=== PATIENT | male | born 1995 | race Two or more races ===

== ENCOUNTER 2019-12-11 02:01 | Inpatient (IN) | payer OTHER ==
[~2019-12-11] VITALS: Ht 180.3 cm; Wt 86.0 kg
[2019-12-11 04:45] LABS: Basophils # (auto) 0 10 ^3/uL (0-0.2); Basophils % (auto) 0.3 % (0.0-2.0); Eosinophils # (auto) 0 10 ^3/uL (0-0.8); Eosinophils % (auto) 0.3 % (0.0-7.0); Hematocrit 48.3 % (41.0-53.0); Hemoglobin 16.1 g/dL (13.5-17.5); Lymphocytes # (auto) 1.6 10 ^3/uL (0.4-5.4); Lymphocytes % (auto) 16.8 % (10.0-50.0); Mean Corpuscular Hemoglobin 29.5 pg (28.0-32.0); Mean Corpuscular Hgb Conc. 33.3 g/dL (32.0-36.0); Mean Corpuscular Volume 88.6 fL (80.0-100.0); Monocytes # (auto) 0.6 10 ^3/uL (0-1.3); Monocytes % (auto) 6.5 % (0.0-12.0); Neutrophils # (auto) 7.3 10 ^3/uL (1.6-8.6); Neutrophils % (auto) 76.1 % (37.0-80.0); Nucleated Red Blood Cells % 0.1 %; Platelet Count (auto) 198 10^3/uL (140-450); Red Blood Cells 5.45 10^6/uL (4.5-5.90); Red Cell Distribution Width 13.4 % (11.8-14.3); White Blood Cell 9.5 10^3/uL (4.4-10.8)
[2019-12-11 04:57] LABS: INR 1.07 (0.9-1.15); Partial Thromboplastin Time 27.9 sec (23.64-32.05)
[2019-12-11 05:03] LABS: Albumin 4.5 g/dL (3.4-5.0); BUN/Creatinine Ratio 12.8; Calcium 8.9 mg/dL (8.5-10.1); Potassium 3.5 mmol/L (3.5-5.1)
[2019-12-11 05:06] LABS: Bilirubin, Total 1.5 mg/dL (0.2-1.0); Total Protein 8.5 g/dL (6.4-8.2)
[2019-12-11 05:16] LABS: Urine Bacteria NONE SEEN /hpf (None Seen); Urine Blood Negative /uL (Negative); Urine Hyaline Cast FEW /lpf (0 - 2); Urine Mucus FEW (None Seen); Urine Specific Gravity 1.004 (1.001-1.035); Urine WBC <1 /hpf (0 - 3)
[2019-12-11] MEDS ORDERED: SODIUM CHLORIDE 0.9% 1,000 ML IVB ONE (07:44)
[2019-12-11] MEDS ORDERED: FAMOTIDINE 20 MG TAB PO ONE (07:45)
[2019-12-11] MEDS ORDERED: PROMETHAZINE HCL 25 MG/ML 1ML IV PRN (07:45)
[2019-12-11] MEDS ORDERED: ALUM & MAG HYDROX-SIMETH LIQ(MAALOX) 30 ML PO ONE (07:45)
[2019-12-11] MEDS ORDERED: DONNATAL 5ml ORAL Elix (BELLADONNA ALK-PHENOBARB) PO ONE (07:45)
[2019-12-11] MEDS ORDERED: cefTRIAXone 1GM/50ML D5W 50 ML IV ONE (12:30)
[2019-12-11] MEDS ORDERED: ONDANSETRON HCL 4 MG/2 ML VIAL IV PRN (13:00)
[2019-12-11] MEDS ORDERED: D5W/SOD CHL 0.45% 1,000 ML IV SCH (13:00)
[2019-12-11 14:20] LABS: Alcohol, Urine < 3.0 mg/dL (0-10); Amphetamine Screen, Urine NEGATIVE (NEGATIVE); Barbiturate Scree,Urine NEGATIVE (NEGATIVE); Benzodiazephine Screen, Urine NEGATIVE (NEGATIVE); Cannabinoid Screen, Urine NEGATIVE (NEGATIVE); Cocaine Screen, Urine NEGATIVE (NEGATIVE); Opiate Scree,Urine NEGATIVE (NEGATIVE); Phencyclidine Screen, Urine NEGATIVE (NEGATIVE)
[2019-12-11] MEDS: D5W/SOD CHL 0.45% 1,000 ML IV SCH ×2 (14:32→23:06)
--- NOTE | 2019-12-11 17:13 | NUR ---
Telemetry admit from ER: CARO WILLARDIS admitted to Telemetry unit after SBAR received. Patient oriented to CARISA GODDARD, RN primary RN, unit, room, bed, and unit policies regarding patient care and visiting hours. Patient now on continuous telemetry monitoring, tele box # 51 and telemetry reading on arrival to unit is SR 60 BPM. All questions and concerns addressed, patient verbalized understanding.
[2019-12-11] MEDS ORDERED: METH10TA87 PO (17:59)
[2019-12-11] MEDS ORDERED: METO-169 PO (17:59)
[2019-12-11] MEDS: PIPERACILLIN-TAZOB 3.375GM 100 ML IV SCH ×2 (18:19→23:35)
--- NOTE | 2019-12-11 18:52 | NUR ---
CLOSING NOTE: Patient resting in bed. No S/S of SOB or pain at this time. Care endorsed to NOC RN.
[2019-12-11 21:21] VITALS: BP 96/66
[2019-12-11] MEDS ORDERED: PANTOPRAZOLE 40 MG/10 ML VIAL INJ IV SCH (22:00)
[2019-12-11] MEDS ORDERED: METOPROLOL TARTRATE 50 MG TAB PO SCH (22:00)
[2019-12-11] MEDS ORDERED: methIMAzole 5 MG TAB PO SCH (22:00)
[2019-12-12 05:00] VITALS: BP 92/60
[2019-12-12 06:01] LABS: Basophils # (auto) 0 10 ^3/uL (0-0.2); Basophils % (auto) 0.9 % (0.0-2.0); Eosinophils # (auto) 0.1 10 ^3/uL (0-0.8); Eosinophils % (auto) 1.9 % (0.0-7.0); Hematocrit 44.3 % (41.0-53.0); Hemoglobin 14.8 g/dL (13.5-17.5); Lymphocytes # (auto) 1.8 10 ^3/uL (0.4-5.4); Lymphocytes % (auto) 35.3 % (10.0-50.0); Mean Corpuscular Hgb Conc. 33.4 g/dL (32.0-36.0); Mean Corpuscular Volume 89.7 fL (80.0-100.0); Monocytes # (auto) 0.5 10 ^3/uL (0-1.3); Monocytes % (auto) 9.9 % (0.0-12.0); Neutrophils # (auto) 2.7 10 ^3/uL (1.6-8.6); Nucleated Red Blood Cells % 0.1 %; Platelet Count (auto) 170 10^3/uL (140-450); Red Blood Cells 4.94 10^6/uL (4.5-5.90); Red Cell Distribution Width 13.5 % (11.8-14.3); White Blood Cell 5.2 10^3/uL (4.4-10.8)
[2019-12-12] MEDS: D5W/SOD CHL 0.45% 1,000 ML IV SCH ×2 (06:13→14:15)
[2019-12-12] MEDS: PIPERACILLIN-TAZOB 3.375GM 100 ML IV SCH ×3 (06:13→17:23)
[2019-12-12 06:29] LABS: INR 1.11 (0.9-1.15); Partial Thromboplastin Time 29.6 sec (23.64-32.05)
[2019-12-12 06:33] LABS: Albumin 3.9 g/dL (3.4-5.0); Bilirubin, Total 2.2 mg/dL (0.2-1.0); Calcium 8.6 mg/dL (8.5-10.1); Total Protein 7.3 g/dL (6.4-8.2)
--- NOTE | 2019-12-12 06:35 | NUR ---
Closing Note Patient lying in bed, awake and alert. No s/s of distress. Bed in lowest locked position, side rails up x2, call light within reach. Guards at bedside. Will endorse care to dayshift RN.
--- NOTE | 2019-12-12 07:15 | NUR ---
Opening Shift Note: Assumed care of patient, awake and alert. No S/S of distress/SOB or pain. Patient NPO pending procedure. Bed in lowest locked position, side rails up x 2, call light within reach. Patient instructed on POC and to call for assist PRN, will continue to monitor for changes Q1hr and PRN.
[2019-12-12] MEDS ORDERED: MIDAZOLAM HCL 1MG/1ML-2 ML VIAL ONE (07:43)
[2019-12-12] MEDS ORDERED: SODIUM CHLORIDE LOCK 10 ML ONE (07:43)
[2019-12-12] MEDS ORDERED: ROCURONIUM 10MG/ML 10ML VIAL IV ONE (07:43)
[2019-12-12] MEDS ORDERED: PROPOFOL 10 MG/ML 20 ML IV ONE (07:43)
[2019-12-12] MEDS ORDERED: ONDANSETRON HCL 4 MG/2 ML VIAL ONE (07:43)
[2019-12-12] MEDS ORDERED: MORPHINE SULFATE INJECTION 1 ML ONE (07:43)
[2019-12-12] MEDS ORDERED: fentaNYL CITRATE 100 MCG/2 ML VL ONE (07:43)
[2019-12-12] MEDS ORDERED: fentaNYL CITRATE 5 ML ONE (07:43)
[2019-12-12] MEDS ORDERED: KETAMINE HCL 10 ML ONE (07:47)
--- NOTE | 2019-12-12 08:05 | NUR ---
Patient taken down to OR at this time. No distress noted.
[2019-12-12] MEDS ORDERED: LIDOCAINE 1% HCL (LOCAL ANESTH.) INJ 20ML MDV ONE (08:06)
[2019-12-12] MEDS ORDERED: BUPIVACAINE HCL 50 ML ONE (08:06)
[2019-12-12 08:24] VITALS: BP 99/53
[2019-12-12] MEDS ORDERED: LEVOTHYROXINE SODIUM 100 MCG/5 ML INJ IV ONE (08:45)
[2019-12-12] MEDS ORDERED: HYDROCORTISONE SOD SUCC 100 MG/2ML INJ VIAL ONE (08:50)
[2019-12-12] MEDS ORDERED: NEOSTIGMINE 1 MG/ML INJ (10mg/10ML VIAL) ONE (09:59)
[2019-12-12] MEDS ORDERED: GLYCOPYRROLATE 0.2 MG/ML 1ML VIAL ONE (09:59)
[2019-12-12] MEDS: ENOXAPARIN SOD 40 MG/0.4 ML SYRINGE SC SCH (10:00)
[2019-12-12] MEDS ORDERED: OXYCODONE W/ ACETAMINOPHEN 5/325MG TABLET PO PRN (10:30)
[2019-12-12] MEDS ORDERED: MORPHINE SULFATE 4 MG/ML SYR/VIAL IV PRN (10:45)
[2019-12-12] MEDS ORDERED: ONDANSETRON HCL 4 MG/2 ML VIAL IV PRN (10:45)
[2019-12-12] MEDS ORDERED: KETOROLAC TROMETH 30 MG/ML 1ML VIAL IV ONE (10:45)
[2019-12-12] MEDS: HYDROmorphone HCL 2 MG/ML VL IV PRN ×4 (10:48→11:20)
--- NOTE | 2019-12-12 11:47 | NUR ---
PATIENT GONZALEZ TO UNIT FROM OR
[2019-12-12] MEDS: OXYCODONE W/ ACETAMINOPHEN 5/325MG TABLET PO PRN ×2 (12:23→17:24)
[2019-12-12 12:29] VITALS: BP 140/67
[2019-12-12] MEDS: MORPHINE SULF INJ 2 MG/ML SYRINGE 1ML IV PRN ×2 (13:39→21:44)
[2019-12-12 16:34] VITALS: BP 138/85
[2019-12-12 22:00] VITALS: BP 110/67
[2019-12-13] MEDS: HYDROmorphone HCL 2 MG/ML VL IV PRN ×3 (00:19→16:35)
[2019-12-13] MEDS: PIPERACILLIN-TAZOB 3.375GM 100 ML IV SCH ×4 (00:19→18:10)
[2019-12-13] MEDS: D5W/SOD CHL 0.45% 1,000 ML IV SCH ×4 (02:18→22:15)
[2019-12-13] MEDS: MORPHINE SULF INJ 2 MG/ML SYRINGE 1ML IV PRN (02:44)
--- NOTE | 2019-12-13 03:21 | NUR ---
CLOSING NOTE: Patient resting in bed. No distress noted. Care endorsed
--- NOTE | 2019-12-13 03:45 | NUR ---
Opening Shift Note Assumed care of patient, awake, alert, and oriented. No S/S of distress/SOB. Patient c/o pain to abdomen, sharp 03/08. will medicate per md orders. Bed in lowest/locked position, bed rails upx2, call light within reach. Guards at bedside. Instructed on POC and to call for assist PRN. Will continue to monitor for changes Q1hr and PRN.
[2019-12-13 05:00] VITALS: BP 120/80
[2019-12-13 06:27] LABS: Basophils # (auto) 0 10 ^3/uL (0-0.2); Eosinophils # (auto) 0 10 ^3/uL (0-0.8); Hematocrit 45.4 % (41.0-53.0); Hemoglobin 15.2 g/dL (13.5-17.5); Lymphocytes # (auto) 0.9 10 ^3/uL (0.4-5.4); Lymphocytes % (auto) 8.2 % (10.0-50.0); Mean Corpuscular Hemoglobin 29.8 pg (28.0-32.0); Mean Corpuscular Hgb Conc. 33.5 g/dL (32.0-36.0); Monocytes # (auto) 1.3 10 ^3/uL (0-1.3); Monocytes % (auto) 11.8 % (0.0-12.0); Neutrophils # (auto) 8.8 10 ^3/uL (1.6-8.6); Nucleated Red Blood Cells % 0.1 %; Platelet Count (auto) 196 10^3/uL (140-450); Red Cell Distribution Width 13.8 % (11.8-14.3)
[2019-12-13 06:44] LABS: Albumin 3.9 g/dL (3.4-5.0); Potassium 3.9 mmol/L (3.5-5.1)
--- NOTE | 2019-12-13 06:45 | NUR ---
PAGE PAGED DR Saul THOMAS RE: PHARMACY WANTING CLARIFICATION ON MEDICATION. AWAITING RETURN CALL
[2019-12-13 06:49] LABS: BUN/Creatinine Ratio 4.8; Bilirubin, Total 1.6 mg/dL (0.2-1.0); Total Protein 7.6 g/dL (6.4-8.2)
[2019-12-13] MEDS: OXYCODONE W/ ACETAMINOPHEN 5/325MG TABLET PO PRN ×3 (06:53→14:48)
[2019-12-13] MEDS ORDERED: LEVOTHYROXINE SODIUM 100 MCG/5 ML INJ IV SCH (07:00)
[2019-12-13 08:22] VITALS: BP 133/78
--- NOTE | 2019-12-13 09:55 | NUR ---
MD ROUNDS DR Saul THOMAS AT BEDSIDE DISCUSSING POC WITH PATIENT. NEW ORDERS RECEIVED/WILL CARRY OUT
[2019-12-13] MEDS ORDERED: LEVOTHYROXINE SODIUM 100 MCG/5 ML INJ IV ONE (10:30)
[2019-12-13] MEDS: ENOXAPARIN SOD 40 MG/0.4 ML SYRINGE SC SCH (10:52)
[2019-12-13] MEDS: PANTOPRAZOLE 40 MG TAB PO SCH (10:52)
[2019-12-13 12:50] VITALS: BP 118/82
--- NOTE | 2019-12-13 14:00 | NUR ---
INCENTIVE SPIROMETER PATIENT GIVEN INCENTIVE SPIROMETER. EDUCATED PATIENT ON USE & IMPORTANCE OF I/S. PATIENT INFORMED TO USE I/S AT LEAST 10X/HOUR. PATIENT VERBALIZED UNDERSTANDING AND RETURNED DEMO. WILL CONTINUE TO MONITOR
--- NOTE | 2019-12-13 16:38 | NUR ---
Nutrition Assessment Notes Please refer to link for full assessment notes. Est Energy needs: [address] kcals (25-30 kcal/kgBW) Est Protein needs: 67-84 gms/day (0.8-1.0 gm/kgBW) Will continue to monitor and reassess prn. Addendum: 12/13/19 at [address] Amended: Links added.
--- NOTE | 2019-12-13 16:46 | NUR ---
DRESSING DRESSING TO ABDOMEN CHANGED AFTER PATIENT STATED "HE FELT A POP AFTER COUGHING." ASSESSED SIGHT. LYUDMILA INTACT WELL APPROXIMATED.
[2019-12-13 17:14] VITALS: BP 132/73
--- NOTE | 2019-12-13 17:25 | NUR ---
ABDOMINAL BINDER ABDOMINAL BINDER PLACED PER PATIENT REQUEST
--- NOTE | 2019-12-13 19:40 | NUR ---
Opening Shift Note Assumed care of patient, awake and alert. No S/S of distress/SOB or pain. Instructed on POC and to call for assist PRN, will continue to monitor for changes Q1hr and PRN.Post open cholecystectomy M[place] dressing dry and intact.
[2019-12-13] MEDS ORDERED: KETOROLAC TROMETH 30 MG/ML 1ML VIAL IV ONE (20:00)
[2019-12-13 22:00] VITALS: BP 101/68
[2019-12-14] VITALS (7 sets, daily range): BP systolic 104–131; BP diastolic 50–87
[2019-12-14] MEDS: KETOROLAC TROMETH 30 MG/ML 1ML VIAL IV SCH ×2 (01:57→05:35)
[2019-12-14] MEDS: OXYCODONE W/ ACETAMINOPHEN 5/325MG TABLET PO PRN ×4 (03:02→20:06)
[2019-12-14] MEDS: D5W/SOD CHL 0.45% 1,000 ML IV SCH ×3 (05:34→17:55)
[2019-12-14] MEDS: LEVOTHYROXINE SODIUM 100 MCG TAB PO SCH (06:37)
--- NOTE | 2019-12-14 07:23 | NUR ---
Report given to Malick Machado, patient is resting, no distress.
--- NOTE | 2019-12-14 07:36 | NUR ---
Opening Note Assumed pt care from NOC RN. Pt is a/ox4 with no s/s of distress or SOB. Pt is currently sitting upright in bed with mild c/o pain to abdomen, 01/05. Discussed next pain medication. Discussed POC with pt; pt verbalized understanding. Incision to abdomen is open to air; no abnormalities noted. Safety measures maintained with call light within reach, bed in lowest position and side rails up. Will continue to monitor.
--- NOTE | 2019-12-14 07:40 | NUR ---
Dr Saul Biggs at bedside MD to see pt. requests that repeat TSH labs be done in the morning to monitor thyroid function. Will continue to monitor.
[2019-12-14 07:56] LABS: Albumin 3.7 g/dL (3.4-5.0); Calcium 8.9 mg/dL (8.5-10.1); Potassium 3.5 mmol/L (3.5-5.1)
[2019-12-14 08:00] LABS: BUN/Creatinine Ratio 4.3; Bilirubin, Total 1.3 mg/dL (0.2-1.0); Total Protein 7.1 g/dL (6.4-8.2)
--- NOTE | 2019-12-14 08:06 | NUR ---
Spoke with Radiology Unable to complete MRCP due to pt eating breakfast. Will keep pt NPO after 0000 for MRCP tomorrow.
[2019-12-14] MEDS: PANTOPRAZOLE 40 MG TAB PO SCH (09:09)
[2019-12-14] MEDS: ENOXAPARIN SOD 40 MG/0.4 ML SYRINGE SC SCH (09:10)
--- NOTE | 2019-12-14 09:20 | NUR ---
Pt Refusing Tele Monitor Pt currently refusing to wear tele monitor. Pt states "it irritates my incision". Discussed with pt the ability too move the wire so that it is not touching his stomach; pt still refused and requested that we would give his skin some rest. Will attempt to replace monitor.
--- NOTE | 2019-12-14 13:44 | NUR ---
IV INSERTION AND REMOVAL 20G INSERTED TO RIGHT FOREARM, ONE ATTEMPT USING CLEAN STERILE TECHNIQUE, PATIENT TOLERATED WELL. 20G TO LEFT AC REMOVED. CATHETER REMOVED FULLY INTACT, SIGHT IS ASYMPTOMATIC, PRESSURE APPLIED WITH GAUZE AND WRAPPED WITH COBAND.
--- NOTE | 2019-12-14 19:15 | NUR ---
Opening Shift Note Received report from zafar Amezquita RN. Assumed care of patient, awake and alert. Guards at bedside. No S/S of distress/SOB, but c/o pain to right abdomen. Will give pain medication as ordered. Instructed on POC and to call for assist PRN, will continue to monitor for changes Q1hr and PRN.
--- NOTE | 2019-12-14 21:30 | NUR ---
Reminded patient not to remove abd binder when ambulating. Patient verbalized understanding.
[2019-12-15] MEDS: OXYCODONE W/ ACETAMINOPHEN 5/325MG TABLET PO PRN ×4 (01:34→23:51)
--- NOTE | 2019-12-15 01:34 | NUR ---
Pain medication given Percocet for pain to abdomen of 9/10. Patient refused Morphine stating that it does not work.
[2019-12-15 05:00] VITALS: BP 144/82
[2019-12-15] MEDS: D5W/SOD CHL 0.45% 1,000 ML IV SCH ×3 (05:34→22:15)
[2019-12-15] MEDS: LEVOTHYROXINE SODIUM 100 MCG TAB PO SCH (06:53)
--- NOTE | 2019-12-15 08:00 | NUR ---
Opening Shift Note Assumed care of patient, awake and alert. No S/S of distress/SOB or pain. Instructed on POC and to call for assist PRN, will continue to monitor for changes Q1hr and PRN.
[2019-12-15 09:00] VITALS: BP 145/89
[2019-12-15] MEDS: PANTOPRAZOLE 40 MG TAB PO SCH (09:54)
[2019-12-15] MEDS: ENOXAPARIN SOD 40 MG/0.4 ML SYRINGE SC SCH (09:55)
[2019-12-15] MEDS: MORPHINE SULF INJ 2 MG/ML SYRINGE 1ML IV PRN ×3 (09:56→21:10)
[2019-12-15 13:00] VITALS: BP 144/87
--- NOTE | 2019-12-15 15:32 | NUR ---
assessment Patient is a 24 year old male who is alert and oriented. Patient has been explained that he has a social insurance adviser available to him for support and education regarding his hospital stay and any post discharge needs. Patient has no concerns and no questions at this time. Patient verbalized understanding. Addendum: 12/15/19 at 1533 by Massiel MARADIAGA Amended: Links added.
--- NOTE | 2019-12-15 15:32 | NUR ---
Nutrition Followup Note Wt 88.4kg Pt was alert and oriented when rounding this am. Pt reports appetite was good. Pt reports some nausea from certain greasier foods. Pt requested Ensure Enlive, pt intake is adequate, advised pt the need to eat food over supplements. Est Energy needs: [address] kcals (25-30 kcal/kgBW) Est Protein needs: 67-84 gms/day (0.8-1.0 gm/kgBW) Will continue to monitor and reassess prn. Labs: AST 72H, ALT 97H, Alb 3.7WNL BM: 1 12/13 per RN doc Skin: BS 21 low risk ,full details in director of career resources doc. PES: Resolved: Pt diet regular. 1) Increased nutrient needs r/t pt current medical condition aeb pt with a Clear Liquid diet 2) Altered nutrition related lab values r/t current medical condition aeb elev LFTs, hyperglycemia, elev Bili Comments Will continue to closely monitor pertinent labs, PO intake and skin status prn. Will followup in 2-3 days 1) Continue to closely monitor pt PO intake to meet at least 75% of meals 2) Continue current plan of care Expected Outcomes/Goals: Pt appetite to remain >75% PO intake
[2019-12-15 16:54] VITALS: BP 140/76
--- NOTE | 2019-12-15 20:00 | NUR ---
OPENING NOTE RECEIVED REPORT FROM DAYSHIFT RN. ASSUMING ROLE OF CARE FOR THE NIGHT AND PATIENT VERBALIZED UNDERSTANDING. PATIENT SHOWING NO SIGN OF DISTRESS, SHORTNESS OF BREATH, BUT PATIENT DOES STATE PAIN FROM INCISION. INCISION IS OPEN TO AIR WITH NO DRAINAGE NOTED. PATIENT WILL BE MEDICATED PER PAIN PROTOCOL WHEN AVAILABLE. BED LOWERED, CALL LIGHT WITHIN REACH, AND PATIENT WILL BE ROUNDED ON EVERY HOUR AND NEEDED.
[2019-12-15 22:00] VITALS: BP 156/82
[2019-12-16] MEDS: MORPHINE SULF INJ 2 MG/ML SYRINGE 1ML IV PRN ×2 (02:56→06:57)
[2019-12-16 05:00] VITALS: BP 136/83
[2019-12-16] MEDS: D5W/SOD CHL 0.45% 1,000 ML IV SCH (06:13)
[2019-12-16] MEDS: LEVOTHYROXINE SODIUM 100 MCG TAB PO SCH (06:14)
--- NOTE | 2019-12-16 07:30 | NUR ---
Opening Shift Note RECEIVED REPORT FROM NOC RN. Assumed care of patient, awake and alert. No S/S of distress/SOB or pain. BED IN LOWEST, LOCKED POSITION WITH SIDERAILS UP x2 AND CALL LIGHT WITHIN REACH AND GUARDS AT BEDSIDE. Instructed on POC and to call for assist PRN, will continue to monitor for changes Q1hr and PRN.
[2019-12-16 08:39] VITALS: BP 137/80
[2019-12-16] MEDS: OXYCODONE W/ ACETAMINOPHEN 5/325MG TABLET PO PRN ×2 (08:44→16:01)
[2019-12-16] MEDS: ENOXAPARIN SOD 40 MG/0.4 ML SYRINGE SC SCH (09:37)
[2019-12-16] MEDS: PANTOPRAZOLE 40 MG TAB PO SCH (09:37)
--- NOTE | 2019-12-16 10:45 | NUR ---
DISCHARGE SUMMARY #[id number], PER DR. Magui THOMAS.
[2019-12-16 10:55] VITALS: BP 137/80
[2019-12-16 12:40] VITALS: BP 135/85
[2019-12-16 16:32] VITALS: BP 129/71
--- NOTE | 2019-12-16 17:08 | NUR ---
Discharge instructions given as ordered. Encourage to follow up with PMD as instructed. All questions and concerns addressed. Patient verbalized understanding. Medication reconciliation form completed and copy given to patient. IV removed with catheter intact, pressure dressing applied. Telemetry unit returned to ICU WITH CASIE SANTILLAN. Patient AMBULATED to vehicle with all personal belongings, accompanied by GUARDS. No distress noted at time of departure.
== END 2019-12-16 17:05 | DRG 416 ==
LOC: EEVIPCON 02:01 → ER 02:01 → OVERFLOW 02:02 → TELE-WESTW 17:13
PROVIDERS: ADMIT Specialist; ATTEND Specialist
PROC: 0DNL0ZZ Release Transverse Colon, Open Approach (ICD-10-PCS; 2019-12-12)
PROC: 3E0T3BZ Introduction of Anesthetic Agent into Peripheral Nerves and Plexi, Percutaneous Approach (ICD-10-PCS; 2019-12-12)
PROC: 0FT40ZZ Resection of Gallbladder, Open Approach (ICD-10-PCS; principal; 2019-12-12 09:18)
DX: K80.00 Calculus of gallbladder with acute cholecystitis without obstruction (principal); E03.9 Hypothyroidism, unspecified; I10 Essential (primary) hypertension; K66.0 Peritoneal adhesions (postprocedural) (postinfection); K82.8 Other specified diseases of gallbladder; Z79.899 Other long term (current) drug therapy; Z03.818 Encounter for observation for suspected exposure to other biological agents ruled out
CPT/HCPCS: 36415; 74176; 74181; 76705; 80053; 80307; 81001; 82150; 83690; 83735; 84443; 85025; 85610; 85730; 86850; 86900; 86901; C9113; G0378; J0696; J1885; J2001; J2250; J2405; J2543; J2704; J3490

== ENCOUNTER 2020-02-19 03:05 | Inpatient (IN) | payer OTHER ==
[~2020-02-19] VITALS: Ht 180.3 cm; Wt 87.0 kg
[~2020-02-19 03:05] MED LIST: METH10TA87 PO; METO-169 PO
[2020-02-19 06:47] LABS: Urine Bacteria NONE SEEN /hpf (None Seen); Urine Blood Negative /uL (Negative); Urine Specific Gravity 1.013 (1.001-1.035); Urine WBC <1 /hpf (0 - 3)
[2020-02-19] MEDS: LEVOTHYROXINE SODIUM 50 MCG TAB PO SCH ×2 (07:00→13:03)
[2020-02-19 07:32] LABS: Basophils # (auto) 0 10 ^3/uL (0-0.2); Basophils % (auto) 0.7 % (0.0-2.0); Eosinophils # (auto) 0.1 10 ^3/uL (0-0.8); Eosinophils % (auto) 1.5 % (0.0-7.0); Hematocrit 49.8 % (41.0-53.0); Hemoglobin 16.3 g/dL (13.5-17.5); Lymphocytes # (auto) 1.9 10 ^3/uL (0.4-5.4); Lymphocytes % (auto) 29.7 % (10.0-50.0); Mean Corpuscular Hemoglobin 28.9 pg (28.0-32.0); Mean Corpuscular Hgb Conc. 32.8 g/dL (32.0-36.0); Monocytes # (auto) 0.7 10 ^3/uL (0-1.3); Monocytes % (auto) 10.8 % (0.0-12.0); Neutrophils # (auto) 3.7 10 ^3/uL (1.6-8.6); Neutrophils % (auto) 57.3 % (37.0-80.0); Nucleated Red Blood Cells % 0.1 %; Platelet Count (auto) 205 10^3/uL (140-450); Red Blood Cells 5.65 10^6/uL (4.5-5.90); Red Cell Distribution Width 13.4 % (11.8-14.3); White Blood Cell 6.4 10^3/uL (4.4-10.8)
[2020-02-19 08:01] LABS: Albumin 4.4 g/dL (3.4-5.0); BUN/Creatinine Ratio 12.6; Calcium 9.4 mg/dL (8.5-10.1); Potassium 3.9 mmol/L (3.5-5.1)
[2020-02-19 08:04] LABS: Bilirubin, Total 1.6 mg/dL (0.2-1.0); Total Protein 8.1 g/dL (6.4-8.2)
[2020-02-19] MEDS ORDERED: MORPHINE SULF INJ 2 MG/ML SYRINGE 1ML IV PRN (11:30)
[2020-02-19] MEDS ORDERED: NITROGLYCERIN 0.4 MG SL TAB SL PRN (11:30)
[2020-02-19] MEDS: D5W/SOD CHL 0.45% 1,000 ML IV SCH ×2 (11:30→18:35)
[2020-02-19] MEDS ORDERED: PHENYTOIN IV DILANTIN 1,000 MG in SODIUM CHL 0.9% 250 ML IV ONE (11:45)
[2020-02-19] MEDS ORDERED: PHENYTOIN SODIUM 100 MG CAP PO ONE (12:15)
[2020-02-19 13:00] VITALS: BP_SYST 120; BP_SYST 121; BP_DIAS 74; BP_DIAS 93
[2020-02-19] MEDS: PHENYTOIN SODIUM 100 MG CAP PO SCH (13:03)
[2020-02-19] MEDS: traMADol HCL 50 MG TAB PO PRN ×2 (13:04→20:21)
[2020-02-19 17:00] VITALS: BP_SYST 120; BP_SYST 136; BP_DIAS 80; BP_DIAS 91
[2020-02-19] MEDS: ACETAMINOPHEN 325 MG TAB PO PRN (18:42)
[2020-02-19 20:00] VITALS: BP 127/69
[2020-02-19] MEDS: METOPROLOL TARTRATE 50 MG TAB PO SCH (21:51)
[2020-02-19 22:00] VITALS: BP 127/69
[2020-02-19] MEDS ORDERED: METOPROLOL SUCCINATE XL 50 MG TAB PO SCH (22:00)
[2020-02-20] MEDS: D5W/SOD CHL 0.45% 1,000 ML IV SCH ×3 (00:50→15:07)
[2020-02-20] MEDS: traMADol HCL 50 MG TAB PO PRN ×3 (04:05→20:06)
[2020-02-20 05:25] VITALS: BP 123/70
[2020-02-20] MEDS: LEVOTHYROXINE SODIUM 50 MCG TAB PO SCH (06:31)
[2020-02-20 08:43] VITALS: BP 123/67
[2020-02-20] MEDS: METOPROLOL TARTRATE 50 MG TAB PO SCH ×2 (09:33→21:38)
[2020-02-20 12:42] VITALS: BP 115/72
[2020-02-20] MEDS: ACETAMINOPHEN 325 MG TAB PO PRN ×2 (17:24→21:37)
[2020-02-20 22:00] VITALS: BP 135/74
[2020-02-21] MEDS: traMADol HCL 50 MG TAB PO PRN ×2 (05:03→21:52)
[2020-02-21 05:37] VITALS: BP 136/76
[2020-02-21] MEDS: LEVOTHYROXINE SODIUM 50 MCG TAB PO SCH (06:43)
[2020-02-21 08:00] VITALS: BP 120/74
[2020-02-21 09:25] VITALS: BP 120/74
[2020-02-21] MEDS: PHENYTOIN SODIUM 100 MG CAP PO SCH (09:37)
[2020-02-21] MEDS: METOPROLOL TARTRATE 50 MG TAB PO SCH ×2 (09:37→21:52)
[2020-02-21 12:42] VITALS: BP 118/70
[2020-02-21] MEDS: ACETAMINOPHEN 325 MG TAB PO PRN (15:53)
[2020-02-21 16:27] VITALS: BP 113/63
[2020-02-21 21:26] VITALS: BP 127/71
[2020-02-21] MEDS: LACTULOSE 20Gm/30ML SOLN PO SCH (21:53)
[2020-02-22 05:00] VITALS: BP 128/73
[2020-02-22] MEDS: LEVOTHYROXINE SODIUM 50 MCG TAB PO SCH (07:31)
[2020-02-22 08:00] VITALS: BP 116/76
[2020-02-22 09:00] VITALS: BP 116/76
[2020-02-22] MEDS: METOPROLOL TARTRATE 50 MG TAB PO SCH (10:00)
[2020-02-22] MEDS: LACTULOSE 20Gm/30ML SOLN PO SCH (10:00)
[2020-02-22] MEDS: PHENYTOIN SODIUM 100 MG CAP PO SCH (10:17)
[2020-02-22] MEDS: traMADol HCL 50 MG TAB PO PRN (10:19)
[2020-02-22 13:00] VITALS: BP 114/72
[2020-02-22] MEDS ORDERED: LEV50T PO ×2 (13:47)
[2020-02-22] MEDS ORDERED: PHE100C PO ×2 (13:47)
[2020-02-22 15:46] VITALS: BP 116/76
[2020-02-22 17:03] VITALS: BP 125/79
== END 2020-02-22 15:45 | DRG 101 ==
LOC: EDBD 03:05 → EEVIPCON 03:05 → ER 03:05 → CENTRAL 03:06
PROVIDERS: ADMIT Internal Medicine; ATTEND Internal Medicine
DX: G40.909 Epilepsy, unspecified, not intractable, without status epilepticus (principal); W06.XXXA Fall from bed, initial encounter; E03.9 Hypothyroidism, unspecified; I10 Essential (primary) hypertension; Y93.89 Activity, other specified; Y92.143 Cell of prison as the place of occurrence of the external cause; Y99.8 Other external cause status; Z90.49 Acquired absence of other specified parts of digestive tract; Z88.8 Allergy status to other drugs, medicaments and biological substances; Z79.899 Other long term (current) drug therapy
CPT/HCPCS: 36415; 70450; 70551; 72125; 80053; 80185; 81001; 84443; 85025; G0378

== ENCOUNTER → 2020-02-25 | Emergency (ER) | payer OTHER ==
[~2020-02-25] VITALS: Ht 170.2 cm; Wt 85.7 kg
[~2020-02-25] MED LIST changes: +LEV50T PO; +LORazepam 0.5 MG TAB PO ONE; +PHE100C PO
[2020-02-25 15:56] VITALS: BP 126/90
[2020-02-25 17:04] LABS: Basophils # (auto) 0 10 ^3/uL (0-0.2); Basophils % (auto) 0.8 % (0.0-2.0); Eosinophils # (auto) 0.1 10 ^3/uL (0-0.8); Eosinophils % (auto) 1.6 % (0.0-7.0); Hematocrit 47.7 % (41.0-53.0); Hemoglobin 16.1 g/dL (13.5-17.5); Lymphocytes # (auto) 1.5 10 ^3/uL (0.4-5.4); Lymphocytes % (auto) 28.7 % (10.0-50.0); Mean Corpuscular Hemoglobin 29.7 pg (28.0-32.0); Mean Corpuscular Hgb Conc. 33.9 g/dL (32.0-36.0); Mean Corpuscular Volume 87.8 fL (80.0-100.0); Monocytes # (auto) 0.5 10 ^3/uL (0-1.3); Monocytes % (auto) 10.2 % (0.0-12.0); Neutrophils % (auto) 58.7 % (37.0-80.0); Nucleated Red Blood Cells % 0.2 %; Platelet Count (auto) 196 10^3/uL (140-450); Red Blood Cells 5.43 10^6/uL (4.5-5.90); White Blood Cell 5.1 10^3/uL (4.4-10.8)
[2020-02-25 17:14] LABS: Albumin 4.4 g/dL (3.4-5.0); Potassium 4.3 mmol/L (3.5-5.1)
[2020-02-25 17:17] LABS: Bilirubin, Total 0.9 mg/dL (0.2-1.0); Total Protein 8.2 g/dL (6.4-8.2)
== END | disposition home or self-care (01) ==
LOC: ER 15:50
DX: R56.9 Unspecified convulsions (principal)
CPT/HCPCS: 36415; 70450; 80053; 85025

== ENCOUNTER 2020-03-08 19:14 | Inpatient (IN) | payer OTHER ==
[~2020-03-08] VITALS: Ht 182.9 cm; Wt 87.4 kg
[~2020-03-08 19:14] MED LIST changes: -LORazepam 0.5 MG TAB PO ONE
[2020-03-08] MEDS ORDERED: SODIUM CHLORIDE 0.9% 1,000 ML IVB ONE (19:58)
[2020-03-08] MEDS ORDERED: LORazepam 2MG/ML-1ML VIAL IV ONE (20:00)
[2020-03-08 20:34] LABS: Amphetamine Screen, Urine NEGATIVE (NEGATIVE); Barbiturate Scree,Urine NEGATIVE (NEGATIVE); Benzodiazephine Screen, Urine NEGATIVE (NEGATIVE); Cannabinoid Screen, Urine NEGATIVE (NEGATIVE); Cocaine Screen, Urine NEGATIVE (NEGATIVE); Opiate Scree,Urine NEGATIVE (NEGATIVE); Phencyclidine Screen, Urine NEGATIVE (NEGATIVE)
[2020-03-08 20:50] LABS: Basophils # (auto) 0 10 ^3/uL (0-0.2); Basophils % (auto) 0.2 % (0.0-2.0); Eosinophils # (auto) 0 10 ^3/uL (0-0.8); Eosinophils % (auto) 0.2 % (0.0-7.0); Hematocrit 46.7 % (41.0-53.0); Hemoglobin 15.5 g/dL (13.5-17.5); Lymphocytes # (auto) 1.1 10 ^3/uL (0.4-5.4); Lymphocytes % (auto) 10.7 % (10.0-50.0); Mean Corpuscular Hemoglobin 29.1 pg (28.0-32.0); Mean Corpuscular Hgb Conc. 33.2 g/dL (32.0-36.0); Mean Corpuscular Volume 87.8 fL (80.0-100.0); Monocytes # (auto) 0.8 10 ^3/uL (0-1.3); Monocytes % (auto) 7.7 % (0.0-12.0); Neutrophils % (auto) 81.2 % (37.0-80.0); Platelet Count (auto) 194 10^3/uL (140-450); Red Blood Cells 5.32 10^6/uL (4.5-5.90); White Blood Cell 9.9 10^3/uL (4.4-10.8)
[2020-03-08 20:58] LABS: Albumin 4.5 g/dL (3.4-5.0); Potassium 3.4 mmol/L (3.5-5.1)
[2020-03-08 21:01] LABS: BUN/Creatinine Ratio 18.2; Bilirubin, Total 0.5 mg/dL (0.2-1.0); Total Protein 8.1 g/dL (6.4-8.2)
[2020-03-08] MEDS ORDERED: MORPHINE SULF INJ 2 MG/ML SYRINGE 1ML IV PRN (21:30)
[2020-03-08] MEDS ORDERED: NITROGLYCERIN 0.4 MG SL TAB SL PRN (21:30)
[2020-03-08] MEDS: D5W/SOD CHL 0.45% 1,000 ML IV SCH (21:40)
[2020-03-08] MEDS: levETIRAcetam 500 MG TAB PO SCH (22:35)
[2020-03-08] MEDS: METOPROLOL TARTRATE 50 MG TAB PO SCH (22:36)
[2020-03-08 23:30] VITALS: BP 133/93
[2020-03-09] MEDS ORDERED: LEVO50TA7 PO (00:50)
[2020-03-09] MEDS ORDERED: KEP500T PO (00:50)
[2020-03-09] MEDS: D5W/SOD CHL 0.45% 1,000 ML IV SCH ×2 (04:10→09:23)
[2020-03-09 06:17] VITALS: BP 107/78
[2020-03-09] MEDS: LEVOTHYROXINE SODIUM 50 MCG TAB PO SCH (06:30)
[2020-03-09 09:00] VITALS: BP 121/78
[2020-03-09] MEDS: METOPROLOL TARTRATE 50 MG TAB PO SCH ×2 (09:22→21:58)
[2020-03-09] MEDS: levETIRAcetam 500 MG TAB PO SCH (09:22)
[2020-03-09] MEDS: traMADol HCL 50 MG TAB PO PRN ×3 (10:03→21:59)
[2020-03-09 13:00] VITALS: BP 117/72
[2020-03-09 16:43] VITALS: BP 140/86
[2020-03-09 22:00] VITALS: BP 136/74
[2020-03-10] MEDS ORDERED: LORazepam 0.5 MG TAB PO PRN (02:15)
[2020-03-10] MEDS ORDERED: LORazepam 2MG/ML-1ML VIAL IV PRN (02:30)
[2020-03-10] MEDS: traMADol HCL 50 MG TAB PO PRN ×3 (04:50→20:22)
[2020-03-10 05:00] VITALS: BP 119/72
[2020-03-10 05:52] LABS: Carbamazepine (Tegretol) 9.2 ug/mL (4-12)
[2020-03-10 06:06] LABS: Phenytoin (Dilantin) < 0.5 ug/mL (10-20)
[2020-03-10] MEDS: LEVOTHYROXINE SODIUM 50 MCG TAB PO SCH (06:09)
[2020-03-10 08:22] VITALS: BP 125/90
[2020-03-10] MEDS: ENOXAPARIN SOD 40 MG/0.4 ML SYRINGE SC SCH (08:47)
[2020-03-10] MEDS: METOPROLOL TARTRATE 50 MG TAB PO SCH ×2 (08:48→22:00)
[2020-03-10 12:43] VITALS: BP 125/65
[2020-03-10 16:10] VITALS: BP 130/74
[2020-03-10] MEDS: carBAMazepine 200 MG TAB PO SCH (21:55)
[2020-03-10 22:00] VITALS: BP 123/77
[2020-03-11] MEDS: traMADol HCL 50 MG TAB PO PRN ×3 (04:22→20:21)
[2020-03-11 05:00] VITALS: BP 119/75
[2020-03-11] MEDS: carBAMazepine 200 MG TAB PO SCH ×3 (06:00→22:00)
[2020-03-11] MEDS: LEVOTHYROXINE SODIUM 50 MCG TAB PO SCH (06:30)
[2020-03-11 07:55] VITALS: BP 119/84
[2020-03-11] MEDS: ENOXAPARIN SOD 40 MG/0.4 ML SYRINGE SC SCH (09:51)
[2020-03-11] MEDS: METOPROLOL TARTRATE 50 MG TAB PO SCH ×2 (09:51→22:00)
[2020-03-11 12:00] VITALS: BP 113/68
[2020-03-11 16:53] VITALS: BP 113/75
[2020-03-11 22:16] VITALS: BP 113/70
[2020-03-12 05:06] VITALS: BP 116/69
[2020-03-12] MEDS: carBAMazepine 200 MG TAB PO SCH ×2 (06:00→13:42)
[2020-03-12] MEDS: LEVOTHYROXINE SODIUM 50 MCG TAB PO SCH (06:53)
[2020-03-12] MEDS: traMADol HCL 50 MG TAB PO PRN (06:54)
[2020-03-12 07:51] VITALS: BP 116/72
[2020-03-12 09:00] VITALS: BP 116/72
[2020-03-12] MEDS: ENOXAPARIN SOD 40 MG/0.4 ML SYRINGE SC SCH (09:40)
[2020-03-12] MEDS: METOPROLOL TARTRATE 50 MG TAB PO SCH (09:41)
[2020-03-12 13:00] VITALS: BP 139/77
[2020-03-12] MEDS ORDERED: CAR200T PO (15:38)
[2020-03-12 16:43] VITALS: BP 139/77
== END 2020-03-12 17:20 | DRG 100 ==
LOC: EDBD 19:14 → ER 19:14 → EEVIPCON 19:14 → TELE 19:15 → TELE-EAST 23:20 → TELE-WESTW 03-09 12:55
PROVIDERS: ADMIT Internal Medicine; ATTEND Internal Medicine
DX: G40.909 Epilepsy, unspecified, not intractable, without status epilepticus (principal); G92 Toxic encephalopathy; S00.83XA Contusion of other part of head, initial encounter; T42.1X5A Adverse effect of iminostilbenes, initial encounter; F12.90 Cannabis use, unspecified, uncomplicated; Z20.828 Contact with and (suspected) exposure to other viral communicable diseases; Y92.89 Other specified places as the place of occurrence of the external cause; Z88.8 Allergy status to other drugs, medicaments and biological substances; X58.XXXA Exposure to other specified factors, initial encounter; Y93.89 Activity, other specified; Y99.8 Other external cause status
CPT/HCPCS: 36415; 70450; 70551; 80053; 80156; 80185; 80307; 84443; 85025; 87081; 87426; 96361; 96374; 96375; G0378

== ENCOUNTER 2020-04-03 03:35 | Inpatient (IN) | payer OTHER ==
[~2020-04-03] VITALS: Ht 182.9 cm; Wt 104.1 kg
[~2020-04-03 03:35] MED LIST changes: +CAR200T PO; +KEP500T PO; +LEVO50TA7 PO
[2020-04-03] MEDS ORDERED: LORazepam 2MG/ML-1ML VIAL ONE (03:56)
[2020-04-03] MEDS ORDERED: LORazepam 2MG/ML-1ML VIAL IV ONE (04:15)
[2020-04-03 04:21] LABS: Basophils # (auto) 0 10 ^3/uL (0-0.2); Basophils % (auto) 0.5 % (0.0-2.0); Eosinophils # (auto) 0 10 ^3/uL (0-0.8); Eosinophils % (auto) 0.9 % (0.0-7.0); Hematocrit 46.2 % (41.0-53.0); Hemoglobin 15.7 g/dL (13.5-17.5); Lymphocytes # (auto) 1.7 10 ^3/uL (0.4-5.4); Lymphocytes % (auto) 32.9 % (10.0-50.0); Mean Corpuscular Hemoglobin 29.4 pg (28.0-32.0); Mean Corpuscular Hgb Conc. 33.9 g/dL (32.0-36.0); Mean Corpuscular Volume 86.8 fL (80.0-100.0); Monocytes # (auto) 0.6 10 ^3/uL (0-1.3); Monocytes % (auto) 10.8 % (0.0-12.0); Neutrophils # (auto) 2.9 10 ^3/uL (1.6-8.6); Neutrophils % (auto) 54.9 % (37.0-80.0); Nucleated Red Blood Cells % 0.1 %; Platelet Count (auto) 191 10^3/uL (140-450); Red Blood Cells 5.32 10^6/uL (4.5-5.90); Red Cell Distribution Width 13.6 % (11.8-14.3); White Blood Cell 5.2 10^3/uL (4.4-10.8)
[2020-04-03 04:39] LABS: Albumin 4.4 g/dL (3.4-5.0); Calcium 8.4 mg/dL (8.5-10.1); Potassium 3.6 mmol/L (3.5-5.1)
[2020-04-03 04:42] LABS: BUN/Creatinine Ratio 16.5; Bilirubin, Total 0.2 mg/dL (0.2-1.0); Total Protein 7.8 g/dL (6.4-8.2)
[2020-04-03 04:47] LABS: INR 1.08 (0.9-1.15); Partial Thromboplastin Time 26.7 sec (23.0-31.2)
[2020-04-03] MEDS ORDERED: PHENYTOIN IV DILANTIN 1,000 MG in SODIUM CHL 0.9% 250 ML IV ONE (09:45)
[2020-04-03] MEDS ORDERED: ACETAMINOPHEN 325 MG TAB PO PRN ×2 (09:45→10:45)
[2020-04-03] MEDS ORDERED: MORPHINE SULF INJ 2 MG/ML SYRINGE 1ML IV PRN (09:45)
[2020-04-03] MEDS ORDERED: NITROGLYCERIN 0.4 MG SL TAB SL PRN (09:45)
[2020-04-03] MEDS ORDERED: PHENYTOIN SODIUM 100 MG CAP PO ONE (09:45)
[2020-04-03] MEDS ORDERED: ENOXAPARIN SOD 40 MG/0.4 ML SYRINGE SC ONE (09:45)
[2020-04-03] MEDS: D5W/SOD CHL 0.45% 1,000 ML IV SCH ×3 (11:58→23:18)
--- NOTE | 2020-04-03 13:00 | NUR ---
Came on gurney from ER, received patient alert and oriented x1, none verbal, on seizure precaution, not in distress, clear sounds in bilateral lung lobes, RR=16 Sat=97%, deep breathing and coughing was encouraged, unable to verbalized understanding, no sign and symptom of chest pain and SOB, Heart rate=69, abdomen soft and active in all four quadrants, last BM=unknown, Rt. upper extremity shaking noted, general skin intact and warm to touch, resting on bed, head of bed elevated, bed on low position, rails up x2, call light on reach, VS t=97.8 RR=16 Sat=97% P=69 RB=540/63, none verbal ans unable to answer initial admission questions, guards in the room will continue monitoring.
--- NOTE | 2020-04-03 15:00 | NUR ---
NO SEIZURE ACTIVITY NOTED, KEEP NPO, REORIENT Q2 HOURS , NO NE VERBAL, NO CHANGE NOTED, WILL CONTINUE MONITORING.
[2020-04-03 17:02] VITALS: BP 119/57
--- NOTE | 2020-04-03 18:29 | NUR ---
NO SEIZURE ACTIVITY NOTED, NOT IN DISTRESS, RESTING ON BED, WILL CONTINUE MONITORING.
--- NOTE | 2020-04-03 19:30 | NUR ---
[facility] AND IN HOUSE COVID 19 SAMPLE WAS HANDED TO THE LAB.
--- NOTE | 2020-04-03 19:56 | NUR ---
REPORT WAS GIVEN TO THE DIRECTOR OF OUTSIDE SALES RN.
--- NOTE | 2020-04-03 20:02 | NUR ---
OPEN NOTE assumed care of pt upon entering room, guards at bedside. pt awake and alert, pt on room air no distress observed or verbalized. pt unable to respond verbally, but does follow commands such as moving extremities and perrla intact. pt bed rails are padded. ivf running per md orders. pt updated on plan of care, this nurse to reinforce as needed. pt bed locked, low and 2x rails up. call light in reach, this nurse to round q1hr and prn.
--- NOTE | 2020-04-03 20:23 | NUR ---
paged MD Patel for question regarding ordered PO dilantin, pt unable to swallow. message left with answering service, will await call back.
--- NOTE | 2020-04-03 20:30 | NUR ---
dr tadeo call back, this nurse asked about PO med dilantin and pt unable to swallow, stated "just give it IV". this nurse asked for dose and frequency, md replied "dont you have a computer in front of you?" and phone call disconnected.
[2020-04-03 22:00] VITALS: BP 124/53
[2020-04-03] MEDS ORDERED: PHENYTOIN IV DILANTIN 300 MG in SODIUM CHL 0.9% 50 ML IV SCH (22:00)
[2020-04-03] MEDS ORDERED: PHENYTOIN SODIUM 100 MG CAP PO SCH (22:00)
--- NOTE | 2020-04-04 00:19 | NUR ---
pt alert, able to speak in complete sentences. pt reports having issues with seizures "for years", "since i been incarcerated, they give me random meds and they dont work". reports tegretol as present med. states previously successful med klonipin, he used to acquire from "[facility]". pt reports "i feel pretty good right now, just tired". pt call light in reach, bed locked, low and 2x rails up. will continue to monitor.
[2020-04-04 05:30] VITALS: BP 113/75
[2020-04-04] MEDS: D5W/SOD CHL 0.45% 1,000 ML IV SCH ×3 (06:35→19:05)
--- NOTE | 2020-04-04 06:40 | NUR ---
called dr tadeo to notify of critical dilantin level of 23.4
--- NOTE | 2020-04-04 08:00 | NUR ---
Received patient alert and oriented x4, able to communicate today, on seizure precaution, not in distress, clear sounds in bilateral upper and lower lung lobes, RR=18 Sat=97%, deep breathing and coughing was encouraged, demonstrated and verbalized understanding, denied chest pain and SOB, Heart rate=78, abdomen soft and active in all four quadrants, keep NPO as ordered,skin intact and warm to touch, resting on bed, head of bed elevated, manpreet on low position, rails up x2, call light on reach, no seizure activity noted, guards in the room, will continue monitoring.
[2020-04-04] MEDS ORDERED: PHENYTOIN SODIUM 100 MG CAP PO SCH (10:00)
[2020-04-04 13:00] VITALS: BP 105/68
[2020-04-04 17:00] VITALS: BP 118/63
--- NOTE | 2020-04-04 19:05 | NUR ---
AT 1904 SEIZURE ACTIVITY TONIC CLONIC TYPE FOR FEW SECONDS REPORTED BY THE GUARDS, ON ASSESSMENT NO SEIZURE ACTIVITY NOTED, PATIENT ALERT AND ORIENTED, NOT IN DISTRESS, RR=18 SAT=97%, P=82 ZO=133/74, DENIED PAIN, PULED OUT RT.AC IV SITE, DR. SAAVEDRA WAS CALLED AND LEFT A MASSAGE, WAITING FOR CALL BACK.
--- NOTE | 2020-04-04 20:02 | NUR ---
REPORT WAS GIVEN TO THE PLUNGER SHOVEL OPERATOR RN.
--- NOTE | 2020-04-04 20:10 | NUR ---
Opening Shift Note Assumed care of patient, awake and alert. No S/S of distress/SOB or pain. Residential guards at bedside. Instructed on POC and to call for assist PRN, patient verbalized understanding. Bed in lowest position, call light within reach, will continue to monitor for changes Q1hr and PRN.
--- NOTE | 2020-04-04 21:12 | NUR ---
Spoke to pharmacist Yajaira regarding due dose of Phenytoin IV since Phenytoin lab is critically high. Per pharmacist, to hold tonight's dose of Phenytoin and will recheck level tomorrow.
--- NOTE | 2020-04-04 21:17 | NUR ---
Paged Dr. Patel for updates on patient's status, awaiting call back
--- NOTE | 2020-04-04 22:30 | NUR ---
IV insertion IV access obtained, via clean sterile technique by inserting 22 gauge catheter at after 1 attempt(s). IV secured properly. No trauma to site. Patient tolerated well. NOTE: []
[2020-04-04 23:55] VITALS: BP 128/70
[2020-04-04 23:59] VITALS: BP 120/75
[2020-04-04 23:59] LABS: Alcohol, Urine < 3.0 mg/dL (0-10); Amphetamine Screen, Urine NEGATIVE (NEGATIVE); Barbiturate Scree,Urine NEGATIVE (NEGATIVE); Benzodiazephine Screen, Urine NEGATIVE (NEGATIVE); Cannabinoid Screen, Urine NEGATIVE (NEGATIVE); Cocaine Screen, Urine NEGATIVE (NEGATIVE); Opiate Scree,Urine NEGATIVE (NEGATIVE); Phencyclidine Screen, Urine NEGATIVE (NEGATIVE)
[2020-04-05 00:20] LABS: Urine Bacteria NONE SEEN /hpf (None Seen); Urine Blood Negative /uL (Negative); Urine Mucus FEW (None Seen); Urine WBC <1 /hpf (0 - 3)
[2020-04-05] MEDS: D5W/SOD CHL 0.45% 1,000 ML IV SCH ×2 (04:28→11:17)
[2020-04-05 06:00] VITALS: BP 126/69
[2020-04-05] MEDS ORDERED: PHENYTOIN SODIUM 100 MG CAP PO ONE (09:00)
[2020-04-05] MEDS ORDERED: HYDROcodone-ACET 10/325MG TAB PO ONE (11:00)
--- NOTE | 2020-04-05 15:59 | NUR ---
Discharge instructions given as ordered. Encourage to follow up with kinsey FREY as instructed. All questions and concerns addressed. Patient verbalized understanding. Medication reconciliation form completed and copy given to patient. IV removed with catheter intact, pressure dressing applied, Patient taken to vehicle via wheelchair with all personal belongings, accompanied by staff and guards. No distress noted at time of departure.
== END 2020-04-05 16:00 | DRG 101 ==
LOC: EDBD 03:35 → ER 03:39 → EEVIPCON 03:39 → OVERFLOW 03:40 → WEST WING 13:03
PROVIDERS: ADMIT Internal Medicine; ATTEND Internal Medicine
DX: G40.909 Epilepsy, unspecified, not intractable, without status epilepticus (principal); K59.00 Constipation, unspecified; R04.0 Epistaxis; Z20.828 Contact with and (suspected) exposure to other viral communicable diseases; Z90.49 Acquired absence of other specified parts of digestive tract; Z56.0 Unemployment, unspecified; Z76.5 Malingerer [conscious simulation]
CPT/HCPCS: 36415; 70450; 70486; 71250; 72125; 74176; 80053; 80185; 80307; 80320; 81001; 85025; 85610; 85730; 87081; G0378; J7060